=== PATIENT | female | born 1995 | race African-American/Black ===

== ENCOUNTER 2019-07-16 04:53 | Inpatient (IN) ==
[2019-07-16] MEDS ORDERED: MEPERIDINE 50 MG/1 ML VIAL IV PRN (05:08)
[2019-07-16] MEDS ORDERED: ONDANSETRON 4 MG/2 ML VIAL IV PRN (05:08)
[2019-07-16] MEDS ORDERED: BUTORPHANOL 2 MG/ML VIAL IV PRN (05:08)
[2019-07-16] MEDS ORDERED: OXYTOCIN/LR 20 UNIT/1,000 ML BAG IV SCH (05:30)
[2019-07-16] MEDS: LACTATED RINGERS 1,000 ML IV SCH ×2 (05:39→10:08)
[2019-07-16] MEDS ORDERED: AMPICILLIN INJ 2,000 MG in SODIUM CHLORIDE 0.9% 100 ML IV ONE (06:00)
[2019-07-16] MEDS ORDERED: hydrOXYzine HCL 25 MG/1 ML VIAL IM PRN (06:09)
[2019-07-16] MEDS ORDERED: NALOXONE 0.4 MG/ML VIAL IV PRN (06:09)
[2019-07-16] MEDS ORDERED: ePHEDrine 50 MG/ML AMP IV PRN (06:09)
[2019-07-16] MEDS ORDERED: diphenhydrAMINE 50 MG/1 ML VIAL IV PRN ×2 (06:09)
[2019-07-16] MEDS ORDERED: FAMOTIDINE 20 MG/2 ML VIAL IV ONE (06:11)
[2019-07-16] MEDS ORDERED: CITRIC ACID/SODIUM CITRATE 30 ML UDCUP PO ONE (06:11)
[2019-07-16 06:12] LABS: Basophils % 0.1 % (0.0-0.8); Eosinophils % 0.2 % (0.00-10.9); Hematocrit 25.4 VOL% (35.7-47.0); Hemoglobin 7.3 GM/DL (12.0-16.0); Immature Granulocytes Absolute 0.09 #; Lymphocytes % 21.1 % (21.3-54.2); Mean Corpuscular HGB Conc 28.7 GM/DL (32-36); Mean Platelet Volume 12.1 FL (9.6-12.0); Monocytes % 8.7 % (1.7-12.7); NRBC # 0.04 10*3/uL; Neutrophils % 68.9 % (38.7-73.9); Platelet Count 211 T/CUMM (130-400); Red Blood Count 3.48 MC/CUMM (3.8-5.5); Red Cell Distribution Width 18.5 % (9.3-17.3); White Blood Count 9.4 T/CUMM (4-12)
[2019-07-16] MEDS ORDERED: fentaNYL 2 MCG/ROPIV 0.2% EPID 100 ML EPIDURAL SCH (06:30)
[2019-07-16 06:34] LABS: Hypochromasia 1+; Platelet Estimate Adequate
[2019-07-16 06:43] LABS: Albumin 2.4 G/DL (3.4-5.0); Bilirubin,Total 0.4 MG/DL (0.2-1.0); Calcium 8.8 MG/DL (8.5-10.1); Osmolality,Calculated 277.3 MOS/KG (273-304); Total Protein 6.6 G/DL (6.4-8.3)
[2019-07-16 10:51] LABS: Apearance,Urine CLEAR (Clear); Bacteria,Urine Occasional /HPF (Few); Bilirubin,Urine Negative (Negative); Blood, Urine Negative (Negative); Glucose,Urine (UA) Negative (Negative); Hyaline Casts,Urine 1 /LPF (0-3); Ketones,Urine 20 mg/dL (Negative); Mucus,Urine Occasional /LPF (Occasional); Nitrite,Urine Negative (Negative); Protein,Urine Negative; RBC,Urine 1 /HPF (0-4); Squamous Epithelial Cell,Urine Occasional /HPF (0-10); Urine Color Straw (Yellow); Urine Specific Gravity 1.008 (1.001-1.035); Urine Urobilinogen < 2.0 EU/DL (0.2-1.0); WBC,Urine 1 /HPF (0-6)
[2019-07-16] MEDS ORDERED: METHYLERGONOVINE 0.2 MG/1 ML AMP ONE ×2 (11:14→15:57)
[2019-07-16] MEDS ORDERED: CARBOPROST TROMETHAMINE 250 MCG/ML AMP IM ONE (11:14)
[2019-07-16] MEDS ORDERED: TRANEXAMIC ACID 1,000 MG/10 ML VIAL ONE (11:14)
[2019-07-16] MEDS ORDERED: miSOPROStol 200 MCG TABLET ONE (11:14)
[2019-07-16] MEDS ORDERED: AMPICILLIN INJ 1,000 MG in SODIUM CHLORIDE 0.9% 100 ML IV SCH (11:15)
[2019-07-16 11:59] LABS: Cord Venous Blood HCO3 21.9 MMOL/L; Cord Venous Blood PCO2 37.2 MMHG; Cord Venous Blood PO2 36.5
[2019-07-16] MEDS ORDERED: oxyCODONE/ACETAMINOPHEN 5-325 MG TABLET PO PRN (14:20)
[2019-07-16] MEDS ORDERED: MEASLES/MUMPS/RUBELLA VACCINE 0.5 ML VIAL SUBCUT ONE (14:20)
[2019-07-16] MEDS ORDERED: BISACODYL 10 MG SUPP RECTAL PRN (14:20)
[2019-07-16] MEDS ORDERED: LANOLIN 50% CREAM 0.3 OZ TUBE TOP PRN (14:20)
[2019-07-16] MEDS ORDERED: RHO(D) IMMUNE GLOBULIN 300 MCG SYRINGE IM ONE (14:20)
[2019-07-16] MEDS ORDERED: DIPH/TET/ACEL PERT BOOSTER VACCINE 0.5 ML VIAL IM ONE (14:20)
[2019-07-16] MEDS ORDERED: WITCH HAZEL PADS 100/JAR TOP PRN (14:20)
[2019-07-16] MEDS ORDERED: HYDROCORTISONE 2.5% RECTAL CREAM 30 GM TUBE TOP PRN (14:20)
[2019-07-16] MEDS ORDERED: ACETAMINOPHEN 325 MG TABLET PO PRN (14:20)
[2019-07-16] MEDS ORDERED: BENZOCAINE 20%/MENTHOL 0.5% SPRAY 56 GM CAN TOP PRN (14:20)
[2019-07-16] MEDS: IBUPROFEN 800 MG TABLET PO PRN (15:12)
[2019-07-16] MEDS ORDERED: METHYLERGONOVINE 0.2 MG/1 ML AMP IM ONE (15:55)
[2019-07-16] MEDS ORDERED: SODIUM CHLORIDE 0.9% 1,000 ML IV PRN (15:58)
[2019-07-16 16:16] LABS: Hematocrit 22.7 VOL% (35.7-47.0); Hemoglobin 6.6 GM/DL (12.0-16.0)
[2019-07-16] MEDS ORDERED: OXYTOCIN/LR 20 UNIT/1,000 ML BAG IV ONE ×2 (16:22→17:26)
[2019-07-16] MEDS ORDERED: PROMETHAZINE 25 MG/1 ML VIAL IM ONE (16:30)
[2019-07-16] MEDS ORDERED: MEPERIDINE 25 MG/1 ML VIAL IM ONE (16:30)
[2019-07-16] MEDS ORDERED: MEPERIDINE 25 MG/1 ML VIAL ONE (16:32)
[2019-07-16] MEDS ORDERED: PROMETHAZINE 25 MG/1 ML VIAL ONE (16:33)
[2019-07-16 17:08] LABS: Apearance,Urine Slightly Hazy (Clear); Bilirubin,Urine Negative (Negative); Blood, Urine Large mg/dL (Negative); Glucose,Urine (UA) Negative (Negative); Ketones,Urine Negative (Negative); Mucus,Urine Many /LPF (Occasional); Nitrite,Urine Negative (Negative); Protein,Urine 30 MG/DL; RBC,Urine 575 /HPF (0-4); Squamous Epithelial Cell,Urine Occasional /HPF (0-10); Urine Color Yellow (Yellow); Urine Specific Gravity 1.017 (1.001-1.035); Urine Urobilinogen < 2.0 EU/DL (0.2-1.0); WBC,Urine 9 /HPF (0-6)
[2019-07-17] MEDS: oxyCODONE/ACETAMINOPHEN 5-325 MG TABLET PO PRN ×2 (03:36→21:05)
[2019-07-17] MEDS: IBUPROFEN 800 MG TABLET PO PRN ×2 (03:36→21:05)
[2019-07-17] MEDS: DOCUSATE SODIUM 100 MG CAPSULE PO SCH ×3 (04:33→21:03)
[2019-07-17 05:27] LABS: Basophils % 0.2 % (0.0-0.8); Eosinophils % 0.2 % (0.00-10.9); Hematocrit 22.6 VOL% (35.7-47.0); Hemoglobin 7.3 GM/DL (12.0-16.0); Immature Granulocytes % 0.9 %; Immature Granulocytes Absolute 0.16 #; Lymphocytes % 11.1 % (21.3-54.2); Mean Corpuscular HGB Conc 32.3 GM/DL (32-36); Mean Corpuscular Volume 77.9 FL (87-102); Mean Platelet Volume 12.3 FL (9.6-12.0); Monocytes % 7.1 % (1.7-12.7); NRBC # 0.07 10*3/uL; Neutrophils % 80.5 % (38.7-73.9); Red Cell Distribution Width 20.2 % (9.3-17.3)
[2019-07-17 05:30] LABS: Platelet Count 157 T/CUMM (130-400); White Blood Count 18.4 T/CUMM (4-12)
[2019-07-17 05:53] LABS: Anisocytosis 2+; Macrocytosis 1+; Microcytosis 1+; Platelet Estimate Adequate
[2019-07-17 05:54] LABS: Hypochromasia 2+; Polychromasia Few
[2019-07-17 07:41] LABS: Hematocrit 24.9 VOL% (35.7-47.0); Hemoglobin 7.8 GM/DL (12.0-16.0)
[2019-07-17] MEDS ORDERED: FERROUS SULFATE 325 MG TABLET PO SCH (09:00)
[2019-07-17] MEDS: FERROUS SULFATE 325 MG TABLET PO SCH ×3 (09:09→21:03)
[2019-07-18 07:37] VITALS: BP 130/87
[2019-07-18] MEDS: DOCUSATE SODIUM 100 MG CAPSULE PO SCH (09:03)
[2019-07-18] MEDS: FERROUS SULFATE 325 MG TABLET PO SCH (09:05)
== END 2019-07-18 12:45 | disposition home or self-care (01) | DRG 560 ==
LOC: N.LDOUT 04:53 → N.LD 04:57 → N.OB 14:00
PROVIDERS: ADMIT Obstetrics & Gynecology; ATTEND Obstetrics & Gynecology

== ENCOUNTER 2021-12-25 19:53 | Inpatient (IN) ==
[2021-12-25 20:47] LABS: Bilirubin,Urine Negative (Negative); Blood, Urine Negative (Negative); Glucose,Urine (UA) Negative (Negative); Hyaline Casts,Urine 3 /LPF (0-3); Ketones,Urine 20 mg/dL (Negative); Mucus,Urine Occasional /LPF (Occasional); Nitrite,Urine Negative (Negative); Protein,Urine 30 MG/DL; RBC,Urine 3 /HPF (0-4); Squamous Epithelial Cell,Urine Moderate /HPF (0-10); Urine Appearance CLOUDY (Clear); Urine Color Yellow (Yellow); Urine Specific Gravity 1.024 (1.001-1.035)
[2021-12-25] MEDS: LACTATED RINGERS 1,000 ML IV SCH (22:12)
[2021-12-25] MEDS: ONDANSETRON 4 MG/2 ML VIAL IV PRN (22:45)
[2021-12-25] MEDS: MEPERIDINE 50 MG/1 ML VIAL IV PRN (22:47)
[2021-12-26] MEDS ORDERED: LACTATED RINGERS 500 ML IV PRN (06:13)
[2021-12-26] MEDS ORDERED: BUTORPHANOL 2 MG/ML VIAL IV PRN (06:13)
[2021-12-26] MEDS: MEPERIDINE 50 MG/1 ML VIAL IV PRN (06:25)
[2021-12-26] MEDS: ONDANSETRON 4 MG/2 ML VIAL IV PRN (06:25)
[2021-12-26 07:07] LABS: Alanine Aminotransferase 77 U/L (13-56); Albumin 2.2 G/DL (3.4-5.0); Alkaline Phosphatase 137 U/L (45-117); Aspartate Amino Transferase 51 U/L (0-37); Bilirubin,Total < 0.39 MG/DL (0.20-1.00); Blood Urea Nitrogen 7 MG/DL (7-18); Calcium 8.8 MG/DL (8.5-10.1); Carbon Dioxide 20 MMOL/L (21-32); Estimated Glom Filtration Rate 175 ML/MIN; Glucose 84 MG/DL (74-106); Osmolality,Calculated 269.8 MOS/KG (273-304); Potassium 3.7 MMOL/L (3.5-5.1); Sodium 137 MMOL/L (136-145); Total Protein 6.8 G/DL (6.4-8.2)
[2021-12-26 07:13] LABS: Basophils % 0.1 % (0.0-0.8); Eosinophils % 0.2 % (0.00-10.9); Hematocrit 28.7 VOL% (35.7-47.0); Immature Granulocytes % 0.6 %; Immature Granulocytes Absolute 0.05 #; Lymphocytes # 1.8 10*3/uL (1.4-4.0); Lymphocytes % 19.5 % (21.3-54.2); Mean Corpuscular HGB Conc 27.9 GM/DL (32-36); Mean Corpuscular Volume 69.3 FL (87-102); Monocytes % 5.6 % (1.7-12.7); NRBC # 0.02 10*3/uL; Platelet Count 237 T/CUMM (130-400); Red Blood Count 4.14 MC/CUMM (3.8-5.5); Red Cell Distribution Width 20.6 % (9.3-17.3); White Blood Count 9.1 T/CUMM (4-12)
[2021-12-26 07:23] LABS: Hypochromia Slight; Microcytosis 2+; Platelet Estimate Normal
[2021-12-26] MEDS ORDERED: hydrOXYzine HCL 25 MG/1 ML VIAL IM PRN (09:09)
[2021-12-26] MEDS ORDERED: CITRIC ACID/SODIUM CITRATE 30 ML UDCUP PO ONE (09:09)
[2021-12-26] MEDS ORDERED: PROMETHAZINE 25 MG/1 ML VIAL IM PRN (09:09)
[2021-12-26] MEDS ORDERED: ePHEDrine 50 MG/ML VIAL IV PRN (09:09)
[2021-12-26] MEDS ORDERED: diphenhydrAMINE 50 MG/1 ML VIAL IV PRN (09:09)
[2021-12-26] MEDS ORDERED: NALOXONE 0.4 MG/ML VIAL IV PRN (09:09)
[2021-12-26] MEDS ORDERED: FAMOTIDINE 20 MG/2 ML VIAL IV ONE (09:09)
[2021-12-26] MEDS ORDERED: fentaNYL 2 MCG/ROPIV 0.2% EPID 100 ML EPIDURAL SCH (09:30)
[2021-12-26] MEDS ORDERED: OXYTOCIN/LR 20 UNIT/1,000 ML BAG IV SCH (10:30)
[2021-12-26] MEDS ORDERED: miSOPROStoL 200 MCG TABLET ONE (11:37)
[2021-12-26] MEDS ORDERED: OXYTOCIN/LR 20 UNIT/1,000 ML BAG IV ONE ×2 (11:38→14:48)
[2021-12-26] MEDS ORDERED: CARBOPROST TROMETHAMINE 250 MCG/ML AMP IM ONE (11:38)
[2021-12-26] MEDS ORDERED: METHYLERGONOVINE 0.2 MG/1 ML AMP ONE (11:38)
[2021-12-26 12:01] LABS: Cord Venous Blood HCO3 22.7 MMOL/L; Cord Venous Blood PCO2 39.4 MMHG; Cord Venous Blood PO2 44.6
[2021-12-26 12:02] LABS: Bacteria,Urine Occasional /HPF (Few); Bilirubin,Urine Negative (Negative); Blood, Urine Negative (Negative); Glucose,Urine (UA) Negative (Negative); Hyaline Casts,Urine 1 /LPF (0-3); Ketones,Urine 5 mg/dL (Negative); Mucus,Urine Few /LPF (Occasional); Nitrite,Urine Negative (Negative); Protein,Urine Negative; RBC,Urine 2 /HPF (0-4); Squamous Epithelial Cell,Urine Occasional /HPF (0-10); Urine Appearance CLEAR (Clear); Urine Color Yellow (Yellow); Urine Specific Gravity 1.019 (1.001-1.035); Urine Urobilinogen < 2.0 EU/DL (<2.0)
[2021-12-26] MEDS: LACTATED RINGERS 1,000 ML IV SCH ×2 (13:03→13:05)
[2021-12-26] MEDS ORDERED: LANOLIN 50% CREAM 0.3 OZ TUBE TOP PRN (14:48)
[2021-12-26] MEDS ORDERED: WITCH HAZEL PADS 100/JAR TOP PRN (14:48)
[2021-12-26] MEDS ORDERED: oxyCODONE/ACETAMINOPHEN 5-325 MG TABLET PO PRN (14:48)
[2021-12-26] MEDS ORDERED: ACETAMINOPHEN 325 MG TABLET PO PRN (14:48)
[2021-12-26] MEDS ORDERED: BISACODYL 10 MG SUPP RECTAL PRN (14:48)
[2021-12-26] MEDS ORDERED: BENZOCAINE 20%/MENTHOL 0.5% SPRAY 56 GM CAN TOP PRN (14:48)
[2021-12-26] MEDS ORDERED: MEASLES/MUMPS/RUBELLA VACCINE 0.5 ML VIAL SUBCUT ONE (14:48)
[2021-12-26] MEDS ORDERED: RHO(D) IMMUNE GLOBULIN 300 MCG SYRINGE IM ONE (14:48)
[2021-12-26] MEDS ORDERED: HYDROCORTISONE 2.5% RECTAL CREAM 30 GM TUBE TOP PRN (14:48)
[2021-12-26] MEDS ORDERED: DIPH/TET/ACEL PERT BOOSTER VACCINE 0.5 ML VIAL IM ONE (14:48)
[2021-12-26] MEDS: IBUPROFEN 800 MG TABLET PO PRN (17:01)
[2021-12-26] MEDS: FERROUS SULFATE 325 MG TABLET PO SCH (20:34)
[2021-12-26] MEDS: DOCUSATE SODIUM 100 MG CAPSULE PO SCH (20:34)
[2021-12-26] MEDS: oxyCODONE/ACETAMINOPHEN 5-325 MG TABLET PO PRN (20:39)
[2021-12-27] MEDS: IBUPROFEN 800 MG TABLET PO PRN (05:11)
[2021-12-27 06:49] LABS: Basophils % 0.1 % (0.0-0.8); Eosinophils % 0.4 % (0.00-10.9); Hematocrit 29.7 VOL% (35.7-47.0); Hemoglobin 8.2 GM/DL (12.0-16.0); Immature Granulocytes % 0.5 %; Immature Granulocytes Absolute 0.05 #; Lymphocytes # 2.3 10*3/uL (1.4-4.0); Mean Corpuscular HGB Conc 27.6 GM/DL (32-36); Mean Corpuscular Volume 71.1 FL (87-102); Platelet Count 267 T/CUMM (130-400); Red Blood Count 4.18 MC/CUMM (3.8-5.5); White Blood Count 10.3 T/CUMM (4-12)
[2021-12-27 07:43] LABS: Hypochromia 3+
[2021-12-27 07:44] LABS: Microcytosis 1+; Ovalocytes 1+; Platelet Estimate Normal
[2021-12-27] MEDS: FERROUS SULFATE 325 MG TABLET PO SCH ×2 (09:21→21:04)
[2021-12-27] MEDS: DOCUSATE SODIUM 100 MG CAPSULE PO SCH ×2 (09:21→21:04)
[2021-12-27] MEDS: oxyCODONE/ACETAMINOPHEN 5-325 MG TABLET PO PRN (23:18)
[2021-12-28] MEDS: FERROUS SULFATE 325 MG TABLET PO SCH ×2 (07:57→08:11)
[2021-12-28] MEDS: DOCUSATE SODIUM 100 MG CAPSULE PO SCH ×2 (07:57→08:11)
[2021-12-28 08:06] VITALS: BP 122/87
== END 2021-12-28 11:30 | disposition home or self-care (01) | DRG 560 ==
LOC: N.LDOUT 19:53 → N.LD 19:56 → N.OB 12-26 14:45
PROVIDERS: ADMIT Obstetrics & Gynecology; ATTEND Obstetrics & Gynecology